=== PATIENT | male | born 1980 | race Caucasian/White ===

== ENCOUNTER 2016-10-23 18:44 | Inpatient (IN) | payer MEDICARE, MEDICAID ==
[~2016-10-23] VITALS: Ht 172.7 cm; Wt 68.1 kg
[~2016-10-23 18:44] MED LIST: ARIP10TA14 PO
[2016-10-23 19:26] LABS: BASOPHILS # (AUTO) 0.05 K/uL (0.00-0.20); BASOPHILS % (AUTO) 0.5 % (0.0-2.0); EOSINOPHILS # (AUTO) 0.21 K/uL (0.00-0.70); EOSINOPHILS % (AUTO) 1.96 % (1.0-6.0); HEMATOCRIT 44.3 % (41-53); HEMOGLOBIN 14.7 g/dL (13.5-17.5); LYMPHOCYTES # (AUTO) 4.4 K/uL (1.0-4.8); LYMPHOCYTES % (AUTO) 41.7 % (22.0-44.0); MEAN CORPUSCULAR HEMOGLOBIN 31.9 pg (26.0-34.0); MEAN CORPUSCULAR HGB CONC 33.2 G/dL (31.0-37.0); MEAN CORPUSCULAR VOLUME 96 fL (80-100); MONOCYTES # (AUTO) 0.6 K/uL (0.1-1.0); MONOCYTES % (AUTO) 5.6 % (2.0-9.0); NEUTROPHILS # (AUTO) 5.3 K/uL (1.8-7.7); NEUTROPHILS % (AUTO) 50.3 % (40.0-70.0); PLATELET COUNT (AUTO) 285 K/uL (150-450); RED BLOOD CELL COUNT(AUTO) 4.62 MIL/uL (4.50-5.90); RED CELL DISTRIBUTION WIDTH 12.6 % (11.5-14.5); WHITE BLOOD COUNT (AUTO) 10.5 K/uL (4.5-11.0)
[2016-10-23 19:30] LABS: ANION GAP 9 mmol/L (8-16); CALCIUM, TOTAL 8.9 mg/dL (8.8-10.5); CARBON DIOXIDE 32 mmol/L (22-29); CHLORIDE 100 mmol/L (98-107); GLOMERULAR FILTR. RATE CALC > 60 mL/min (>60); POTASSIUM 3.4 mmol/L (3.5-5.1); SODIUM SERUM 141 mmol/L (136-145); UREA NITROGEN, BLOOD 17 mg/dL (7-18)
[2016-10-23] MEDS ORDERED: DiphenhydrAMINE HCL 50 MG/ML VIAL IM ONE (19:30)
[2016-10-23] MEDS ORDERED: LORazepam 2 MG/ML VIAL IM ONE (19:30)
[2016-10-23] MEDS ORDERED: HALOPERIDOL LACTATE 5 MG/ML VIAL IM ONE (19:30)
[2016-10-23 19:36] LABS: ALANINE AMINOTRANSFERASE 21 U/L (12-78); ASPARTATE AMINOTRANSFERASE 22 U/L (15-37); BILIRUBIN,TOTAL 0.4 mg/dL (0.1-1.0); TOTAL PROTEIN, SERUM 7.1 g/dL (6.4-8.2)
[2016-10-23] MEDS ORDERED: POTASSIUM CHLORIDE 20 MEQ ER TABLET PO ONE (20:15)
[2016-10-23] MEDS ORDERED: ZOLPIDEM TARTRATE 10 MG TABLET PO PRN (21:15)
[2016-10-23 21:55] LABS: APPEARANCE,URINE CLEAR (CLEAR); GLUCOSE, URINE (UA) NEGATIVE (NEGATIVE); KETONES,URINE NEGATIVE (NEGATIVE); LEUKOCYTE ESTERASE ,URINE NEGATIVE (NEGATIVE); OCCULT BLOOD,URINE NEGATIVE (NEGATIVE); PH,URINE 5.5 (5.0-8.0); PROTEIN,URINE NEGATIVE (NEGATIVE)
[2016-10-23 21:59] LABS: ADD UA MICROSCOPIC NO
[2016-10-23 22:08] VITALS: BP 119/58
[2016-10-24 04:16] VITALS: BP 93/50
[2016-10-24] MEDS: ARIPiprazole 10 MG TABLET PO SCH (08:22)
[2016-10-24 09:00] VITALS: BP 81/65
[2016-10-24] MEDS: LORazepam 2 MG TABLET PO PRN (10:15)
[2016-10-24 18:48] VITALS: BP 100/58
[2016-10-25 08:30] VITALS: BP 117/68
[2016-10-25] MEDS: ARIPiprazole 10 MG TABLET PO SCH (10:00)
[2016-10-25] MEDS: LORazepam 2 MG TABLET PO PRN ×2 (10:02→15:58)
[2016-10-25] MEDS: HALOPERIDOL 5 MG TABLET PO PRN ×2 (10:02→15:58)
[2016-10-25 21:22] VITALS: BP 114/70
[2016-10-26 06:57] VITALS: BP 104/72
[2016-10-26 07:00] LABS: ANION GAP 5 mmol/L (8-16); CALCIUM, TOTAL 8.9 mg/dL (8.8-10.5); CARBON DIOXIDE 30 mmol/L (22-29); CHLORIDE 103 mmol/L (98-107); CREATINE KINASE MB 0.8 ng/mL (0-5); CREATINE KINASE, TOTAL 280 U/L (39-308); CREATININE 1.12 mg/dL (0.60-1.30); GLOMERULAR FILTR. RATE CALC > 60 mL/min (>60); POTASSIUM 4.7 mmol/L (3.5-5.1); SODIUM SERUM 138 mmol/L (136-145); THYROID STIMULATING HORMONE 1.69 uIU/mL (0.36-3.74); UREA NITROGEN, BLOOD 18 mg/dL (7-18)
[2016-10-26 07:08] LABS: HEMOGLOBIN A1C 5.5 % (4.5-6.2)
[2016-10-26] MEDS: LORazepam 2 MG TABLET PO PRN (07:32)
[2016-10-26] MEDS: HALOPERIDOL 5 MG TABLET PO PRN (07:32)
[2016-10-26 08:30] VITALS: BP 117/72
[2016-10-26] MEDS: ARIPiprazole 10 MG TABLET PO SCH (09:26)
== END 2016-10-26 15:14 | disposition home or self-care (01) | DRG 885 ==
LOC: EMS 18:47 → UNDOADMIN 21:52 → 3EC 21:52 → 3EX 10-24 03:31
PROVIDERS: ADMIT Psychiatry & Neurology Child & Adolescent Psychiatry; ATTEND Psychiatry & Neurology Child & Adolescent Psychiatry
DX: F25.0 Schizoaffective disorder, bipolar type (principal); G92 Toxic encephalopathy; M62.82 Rhabdomyolysis; R45.850 Homicidal ideations; E87.6 Hypokalemia; E83.42 Hypomagnesemia; F15.10 Other stimulant abuse, uncomplicated; F11.10 Opioid abuse, uncomplicated; F17.210 Nicotine dependence, cigarettes, uncomplicated; Z72.89 Other problems related to lifestyle; Z71.6 Tobacco abuse counseling; Z71.51 Drug abuse counseling and surveillance of drug abuser; T50.995A Adverse effect of other drugs, medicaments and biological substances, initial encounter; Y92.238 Other place in hospital as the place of occurrence of the external cause; Y93.89 Activity, other specified; Y99.8 Other external cause status; Y90.6 Blood alcohol level of 120-199 mg/100 ml
CPT/HCPCS: 82306; 82607; 82746; 83036; 84439; 84443; 86592; 96372; 99285; 99406; G0480; J1200; J1630; J2060

== ENCOUNTER 2016-11-16 18:22 | Inpatient (IN) | payer MEDICARE, MEDICAID ==
[~2016-11-16] VITALS: Ht 172.7 cm; Wt 69.7 kg
[2016-11-16] MEDS ORDERED: ZOLPIDEM TARTRATE 10 MG TABLET PO PRN (20:45)
[2016-11-16] MEDS ORDERED: LORazepam 2 MG TABLET PO PRN (20:45)
[2016-11-16 21:11] VITALS: BP 132/72
[2016-11-16] MEDS ORDERED: INFLUENZA VIRUS VACCINE QVS 2016-17 (3YR+)/PF 60 MCG/0.5 ML SYRINGE IM ONE (22:00)
[2016-11-16 22:04] VITALS: BP 106/53
[2016-11-16] MEDS ORDERED: IBUPROFEN 600 MG TABLET PO PRN (23:30)
[2016-11-17 00:16] VITALS: BP 121/70
[2016-11-17] MEDS ORDERED: LORazepam 2 MG/ML VIAL ONE (07:26)
[2016-11-17] MEDS ORDERED: HALOPERIDOL LACTATE 5 MG/ML VIAL ONE (07:27)
[2016-11-17] MEDS ORDERED: DiphenhydrAMINE HCL 50 MG/ML VIAL ONE (07:27)
[2016-11-17] MEDS ORDERED: LORazepam 2 MG/ML VIAL IM ONE (07:30)
[2016-11-17] MEDS ORDERED: DiphenhydrAMINE HCL 50 MG/ML VIAL IM ONE (07:30)
[2016-11-17] MEDS ORDERED: HALOPERIDOL LACTATE 5 MG/ML VIAL IM ONE (07:30)
[2016-11-18 08:16] LABS: BASOPHILS # (AUTO) 0.05 K/uL (0.00-0.20); BASOPHILS % (AUTO) 0.6 % (0.0-2.0); EOSINOPHILS # (AUTO) 0.34 K/uL (0.00-0.70); EOSINOPHILS % (AUTO) 4.26 % (1.0-6.0); HEMATOCRIT 43.8 % (41-53); HEMOGLOBIN 14.7 g/dL (13.5-17.5); LYMPHOCYTES % (AUTO) 37.6 % (22.0-44.0); MEAN CORPUSCULAR HEMOGLOBIN 32.6 pg (26.0-34.0); MEAN CORPUSCULAR HGB CONC 33.5 G/dL (31.0-37.0); MEAN CORPUSCULAR VOLUME 97 fL (80-100); MONOCYTES # (AUTO) 0.5 K/uL (0.1-1.0); MONOCYTES % (AUTO) 6.3 % (2.0-9.0); NEUTROPHILS # (AUTO) 4.1 K/uL (1.8-7.7); NEUTROPHILS % (AUTO) 51.2 % (40.0-70.0); PLATELET COUNT (AUTO) 371 K/uL (150-450); RED BLOOD CELL COUNT(AUTO) 4.51 MIL/uL (4.50-5.90); RED CELL DISTRIBUTION WIDTH 13.5 % (11.5-14.5); WHITE BLOOD COUNT (AUTO) 7.9 K/uL (4.5-11.0)
[2016-11-18 08:51] LABS: ALANINE AMINOTRANSFERASE 31 U/L (12-78); ALBUMIN 3.5 g/dL (3.4-5.0); ANION GAP 6 mmol/L (8-16); ASPARTATE AMINOTRANSFERASE 34 U/L (15-37); BILIRUBIN,TOTAL 0.4 mg/dL (0.1-1.0); CALCIUM, TOTAL 9.1 mg/dL (8.8-10.5); CARBON DIOXIDE 33 mmol/L (22-29); CHLORIDE 101 mmol/L (98-107); CREATINE KINASE MB 2.8 ng/mL (0-5); CREATININE 1.01 mg/dL (0.60-1.30); GLOMERULAR FILTR. RATE CALC > 60 mL/min (>60); POTASSIUM 4.4 mmol/L (3.5-5.1); SODIUM SERUM 140 mmol/L (136-145); TOTAL PROTEIN, SERUM 6.6 g/dL (6.4-8.2); UREA NITROGEN, BLOOD 17 mg/dL (7-18)
[2016-11-18 08:52] LABS: CREATINE KINASE, TOTAL 1063 U/L (39-308)
== END 2016-11-17 07:30 | disposition short-term general hospital (02) | DRG 885 ==
LOC: B2X 20:38 → EDSTATUS 20:40
PROVIDERS: ADMIT Psychiatry & Neurology Child & Adolescent Psychiatry; ATTEND Psychiatry & Neurology Child & Adolescent Psychiatry
PROC: 3E0234Z Introduction of Serum, Toxoid and Vaccine into Muscle, Percutaneous Approach (ICD-10-PCS; principal; 2016-11-16)
DX: F25.0 Schizoaffective disorder, bipolar type (principal); E83.42 Hypomagnesemia; F17.200 Nicotine dependence, unspecified, uncomplicated; F15.90 Other stimulant use, unspecified, uncomplicated; D72.828 Other elevated white blood cell count; F19.10 Other psychoactive substance abuse, uncomplicated; K59.03 Drug induced constipation; T43.95XA Adverse effect of unspecified psychotropic drug, initial encounter; Y92.89 Other specified places as the place of occurrence of the external cause; Z72.89 Other problems related to lifestyle; Y93.89 Activity, other specified; Y99.8 Other external cause status; Z83.3 Family history of diabetes mellitus; Z23 Encounter for immunization
CPT/HCPCS: 83735; 87081; 90471; J1200; J1630; J2060

== ENCOUNTER 2016-11-17 08:39 | Inpatient (IN) | payer MEDICARE, MEDICAID ==
[~2016-11-17] VITALS: Ht 172.7 cm; Wt 68.2 kg
[2016-11-17] MEDS ORDERED: INFLUENZA VIRUS VACCINE QVS 2016-17 (3YR+)/PF 60 MCG/0.5 ML SYRINGE IM ONE (10:45)
[2016-11-18 05:58] VITALS: BP 124/66
[2016-11-18] MEDS: LORazepam 2 MG TABLET PO PRN ×3 (06:13→19:29)
[2016-11-18] MEDS: HALOPERIDOL 5 MG TABLET PO PRN ×2 (08:54→19:29)
[2016-11-18] MEDS: ARIPiprazole 10 MG TABLET PO SCH (08:54)
[2016-11-18 10:30] VITALS: BP 100/63
[2016-11-18] MEDS ORDERED: ACETAMINOPHEN 325 MG TABLET PO PRN (10:30)
[2016-11-18] MEDS: NICOTINE 21 MG/24 HOUR PATCH TD SCH (11:16)
[2016-11-18] MEDS: IBUPROFEN 600 MG TABLET PO PRN (11:22)
[2016-11-18 11:24] VITALS: BP 105/79
[2016-11-18 12:24] VITALS: BP 108/67
[2016-11-18 16:00] VITALS: BP 116/69
[2016-11-18] MEDS: ZOLPIDEM TARTRATE 10 MG TABLET PO PRN (21:06)
[2016-11-19] MEDS: IBUPROFEN 600 MG TABLET PO PRN (06:29)
[2016-11-19 06:34] VITALS: BP 117/72
[2016-11-19 08:11] VITALS: BP 115/72
[2016-11-19] MEDS: NICOTINE 21 MG/24 HOUR PATCH TD SCH (09:16)
[2016-11-19] MEDS: ARIPiprazole 10 MG TABLET PO SCH (09:16)
[2016-11-19] MEDS: LORazepam 2 MG TABLET PO PRN ×2 (09:20→16:02)
[2016-11-19 16:00] VITALS: BP 126/65
[2016-11-19] MEDS: HALOPERIDOL 5 MG TABLET PO PRN (16:02)
[2016-11-20] MEDS: ZOLPIDEM TARTRATE 10 MG TABLET PO PRN ×2 (00:08→20:26)
[2016-11-20 00:10] VITALS: BP 126/72
[2016-11-20] MEDS: LORazepam 2 MG TABLET PO PRN ×3 (00:19→16:31)
[2016-11-20] MEDS: HALOPERIDOL 5 MG TABLET PO PRN ×2 (08:14→16:31)
[2016-11-20] MEDS: ARIPiprazole 10 MG TABLET PO SCH (08:14)
[2016-11-20] MEDS: MAGNESIUM OXIDE 400 MG TABLET PO SCH (08:14)
[2016-11-20] MEDS: NICOTINE 21 MG/24 HOUR PATCH TD SCH (08:17)
[2016-11-20 08:24] VITALS: BP 108/67
[2016-11-20 16:00] VITALS: BP 110/66
[2016-11-21 06:06] VITALS: BP 118/72
[2016-11-21 08:33] VITALS: BP 106/62
[2016-11-21] MEDS: NICOTINE 21 MG/24 HOUR PATCH TD SCH (08:56)
[2016-11-21] MEDS: ARIPiprazole 10 MG TABLET PO SCH (08:56)
[2016-11-21] MEDS: HALOPERIDOL 5 MG TABLET PO PRN ×3 (08:56→19:43)
[2016-11-21] MEDS: LORazepam 2 MG TABLET PO PRN ×3 (08:56→19:43)
[2016-11-21] MEDS: MAGNESIUM OXIDE 400 MG TABLET PO SCH (08:57)
[2016-11-21 16:15] VITALS: BP 122/71
[2016-11-22 05:50] VITALS: BP 116/76
[2016-11-22] MEDS: LORazepam 2 MG TABLET PO PRN ×2 (08:17→13:38)
[2016-11-22] MEDS: MAGNESIUM OXIDE 400 MG TABLET PO SCH (08:18)
[2016-11-22] MEDS: HALOPERIDOL 5 MG TABLET PO PRN ×2 (08:18→13:38)
[2016-11-22] MEDS: ARIPiprazole 10 MG TABLET PO SCH (08:18)
[2016-11-22] MEDS: NICOTINE 21 MG/24 HOUR PATCH TD SCH (08:19)
[2016-11-22 09:42] VITALS: BP 128/79
[2016-11-22 09:42] LABS: CREATINE KINASE, TOTAL 77 U/L (39-308)
[2016-11-22] MEDS ORDERED: MAGOX PO (14:51)
== END 2016-11-22 16:25 | disposition home or self-care (01) | DRG 885 ==
LOC: B3A 09:22
PROVIDERS: ADMIT Psychiatry & Neurology Child & Adolescent Psychiatry; ATTEND Psychiatry & Neurology Child & Adolescent Psychiatry
DX: F25.0 Schizoaffective disorder, bipolar type (principal); F15.90 Other stimulant use, unspecified, uncomplicated; K59.00 Constipation, unspecified; F12.90 Cannabis use, unspecified, uncomplicated; E83.42 Hypomagnesemia; E87.6 Hypokalemia; M79.671 Pain in right foot; F19.10 Other psychoactive substance abuse, uncomplicated; Z28.21 Immunization not carried out because of patient refusal

== ENCOUNTER 2017-01-24 17:08 | Inpatient (IN) | payer MEDICARE, MEDICAID ==
[~2017-01-24] VITALS: Ht 172.7 cm; Wt 69.4 kg
[~2017-01-24 17:08] MED LIST changes: +MAGOX PO
[2017-01-24 18:21] LABS: BASOPHILS % (AUTO) 0.4 % (0.0-2.0); EOSINOPHILS % (AUTO) 2.7 % (1.0-6.0); HEMATOCRIT 43.7 % (41-53); HEMOGLOBIN 14.2 g/dL (13.5-17.5); LYMPHOCYTES # (AUTO) 2.7 K/uL (1.0-4.8); LYMPHOCYTES % (AUTO) 29.9 % (22.0-44.0); MEAN CORPUSCULAR HEMOGLOBIN 32.1 pg (26.0-34.0); MEAN CORPUSCULAR HGB CONC 32.6 G/dL (31.0-37.0); MEAN CORPUSCULAR VOLUME 98 fL (80-100); MONOCYTES # (AUTO) 0.6 K/uL (0.1-1.0); MONOCYTES % (AUTO) 6.9 % (2.0-9.0); NEUTROPHILS # (AUTO) 5.4 K/uL (1.8-7.7); NEUTROPHILS % (AUTO) 60.1 % (40.0-70.0); PLATELET COUNT (AUTO) 364 K/uL (150-450); RED BLOOD CELL COUNT(AUTO) 4.45 MIL/uL (4.50-5.90); RED CELL DISTRIBUTION WIDTH 13.6 % (11.5-14.5)
[2017-01-24 18:35] LABS: ANION GAP 7 mmol/L (8-16); CALCIUM, TOTAL 9.5 mg/dL (8.8-10.5); CARBON DIOXIDE 31 mmol/L (22-29); CHLORIDE 100 mmol/L (98-107); CREATININE 1.07 mg/dL (0.60-1.30); GLOMERULAR FILTR. RATE CALC > 60 mL/min (>60); POTASSIUM 4.5 mmol/L (3.5-5.1); SODIUM SERUM 138 mmol/L (136-145); UREA NITROGEN, BLOOD 16 mg/dL (7-18)
[2017-01-24 18:44] LABS: ALANINE AMINOTRANSFERASE 29 U/L (12-78); ALBUMIN 4.4 g/dL (3.4-5.0); ASPARTATE AMINOTRANSFERASE 20 U/L (15-37); BILIRUBIN,TOTAL 0.3 mg/dL (0.1-1.0); TOTAL PROTEIN, SERUM 7.9 g/dL (6.4-8.2)
[2017-01-24] MEDS ORDERED: DiphenhydrAMINE HCL 50 MG/ML VIAL IM ONE (19:15)
[2017-01-24] MEDS ORDERED: HALOPERIDOL LACTATE 5 MG/ML VIAL IM ONE (19:15)
[2017-01-24] MEDS ORDERED: LORazepam 2 MG/ML VIAL IM ONE (19:15)
[2017-01-24] MEDS ORDERED: OLANZapine 5 MG RAPDIS TABLET PO PRN (20:00)
[2017-01-24 21:25] VITALS: BP 105/72
[2017-01-25 08:07] LABS: CHOL/HDL RATIO 3.4 (4.2-7.3); CREATINE KINASE MB 4.9 ng/mL (0-5); CREATINE KINASE, TOTAL 814 U/L (39-308)
[2017-01-25 08:56] VITALS: BP 101/56
[2017-01-25] MEDS ORDERED: ARIPiprazole 10 MG TABLET PO SCH (09:00)
[2017-01-25] MEDS ORDERED: MAG HYDROX/AL HYDROX/SIMETH ES 30 ML SUSPENSION UDCUP PO PRN (12:00)
[2017-01-25] MEDS ORDERED: LOPERAMIDE HCL 2 MG CAPSULE PO PRN (12:00)
[2017-01-25] MEDS ORDERED: MAGNESIUM HYDROXIDE SUSPENSION 30 ML UDCUP PO PRN (12:00)
[2017-01-25] MEDS ORDERED: GuaiFENesin/D-METHORPHAN [SUGAR-FREE] 200-20MG/10 ML SYRUP UDCUP PO PRN (12:00)
[2017-01-25] MEDS ORDERED: TUBERCULIN, PURIFIED PROTEIN DERIVATIVE 5 TU/0.1 ML SYG ID ONE (12:00)
[2017-01-25] MEDS ORDERED: PROMETHAZINE HCL 25 MG TABLET PO PRN (12:00)
[2017-01-25 16:00] VITALS: BP 107/69
[2017-01-25] MEDS: LORazepam 2 MG TABLET PO PRN (16:44)
[2017-01-25] MEDS: THIAMINE HCL 100 MG TABLET PO SCH (16:44)
[2017-01-25] MEDS ORDERED: HALOPERIDOL DECANOATE 50 MG/ML VIAL IM ONE (17:15)
[2017-01-25] MEDS: HALOPERIDOL 10 MG TABLET PO SCH (21:41)
[2017-01-26] MEDS: LORazepam 2 MG TABLET PO PRN (06:46)
[2017-01-26] MEDS: HALOPERIDOL 5 MG TABLET PO PRN (07:56)
[2017-01-26] MEDS: THIAMINE HCL 100 MG TABLET PO SCH ×2 (07:56→16:34)
[2017-01-26] MEDS: NALTREXONE HCL 50 MG TABLET PO SCH (07:56)
[2017-01-26] MEDS: FOLIC ACID 1 MG TABLET PO SCH (07:56)
[2017-01-26] MEDS: HydrOXYzine PAMOATE 50 MG CAPSULE PO PRN (07:56)
[2017-01-26] MEDS: MULTIVITAMINS WITH MINERALS, THERAPEUTIC TABLET PO SCH (07:56)
[2017-01-26 08:28] VITALS: BP 112/70
[2017-01-26] MEDS: HALOPERIDOL 10 MG TABLET PO SCH (21:27)
[2017-01-27] MEDS: HALOPERIDOL 5 MG TABLET PO PRN ×2 (03:18→07:42)
[2017-01-27] MEDS: LORazepam 2 MG TABLET PO PRN ×3 (03:18→16:16)
[2017-01-27] MEDS: MULTIVITAMINS WITH MINERALS, THERAPEUTIC TABLET PO SCH (07:42)
[2017-01-27] MEDS: FOLIC ACID 1 MG TABLET PO SCH (07:42)
[2017-01-27] MEDS: NALTREXONE HCL 50 MG TABLET PO SCH (07:42)
[2017-01-27] MEDS: THIAMINE HCL 100 MG TABLET PO SCH ×2 (07:42→16:16)
[2017-01-27] MEDS: HydrOXYzine PAMOATE 50 MG CAPSULE PO PRN (07:42)
[2017-01-27 08:23] VITALS: BP 118/69
[2017-01-27 18:04] VITALS: BP 122/71
[2017-01-27] MEDS: HALOPERIDOL 10 MG TABLET PO SCH (20:15)
[2017-01-28] MEDS: LORazepam 2 MG TABLET PO PRN ×3 (01:51→17:00)
[2017-01-28] MEDS: ZOLPIDEM TARTRATE 10 MG TABLET PO PRN (01:51)
[2017-01-28] MEDS: NICOTINE 21 MG/24 HOUR PATCH TD SCH (06:04)
[2017-01-28 08:00] VITALS: BP 111/64
[2017-01-28] MEDS: THIAMINE HCL 100 MG TABLET PO SCH ×2 (08:06→17:01)
[2017-01-28] MEDS: HydrOXYzine PAMOATE 50 MG CAPSULE PO PRN (08:06)
[2017-01-28] MEDS: HALOPERIDOL 5 MG TABLET PO PRN (08:06)
[2017-01-28] MEDS: NALTREXONE HCL 50 MG TABLET PO SCH (08:06)
[2017-01-28] MEDS: FOLIC ACID 1 MG TABLET PO SCH (08:06)
[2017-01-28] MEDS: MULTIVITAMINS WITH MINERALS, THERAPEUTIC TABLET PO SCH (08:06)
[2017-01-28 08:12] LABS: CREATINE KINASE MB 0.8 ng/mL (0-5); CREATINE KINASE, TOTAL 165 U/L (39-308)
[2017-01-28] MEDS: HALOPERIDOL 10 MG TABLET PO SCH (20:20)
[2017-01-29] MEDS: NICOTINE 21 MG/24 HOUR PATCH TD SCH (06:10)
[2017-01-29] MEDS: HydrOXYzine PAMOATE 50 MG CAPSULE PO PRN (07:37)
[2017-01-29] MEDS: LORazepam 2 MG TABLET PO PRN ×2 (07:38→17:50)
[2017-01-29] MEDS: THIAMINE HCL 100 MG TABLET PO SCH ×2 (08:09→16:31)
[2017-01-29] MEDS: NALTREXONE HCL 50 MG TABLET PO SCH (08:09)
[2017-01-29] MEDS: MULTIVITAMINS WITH MINERALS, THERAPEUTIC TABLET PO SCH (08:09)
[2017-01-29] MEDS: FOLIC ACID 1 MG TABLET PO SCH (08:09)
[2017-01-29 09:23] VITALS: BP 137/72
[2017-01-29] MEDS: HALOPERIDOL 5 MG TABLET PO PRN (17:50)
[2017-01-29] MEDS: ACETAMINOPHEN 325 MG TABLET PO PRN (18:33)
[2017-01-29 18:36] VITALS: BP 126/85
[2017-01-29] MEDS: HALOPERIDOL 10 MG TABLET PO SCH (20:28)
[2017-01-30] MEDS: ZOLPIDEM TARTRATE 10 MG TABLET PO PRN (00:09)
[2017-01-30] MEDS: LORazepam 2 MG TABLET PO PRN ×3 (00:09→14:16)
[2017-01-30] MEDS: HALOPERIDOL 5 MG TABLET PO PRN ×3 (01:12→14:16)
[2017-01-30] MEDS: NICOTINE 21 MG/24 HOUR PATCH TD SCH (06:40)
[2017-01-30] MEDS: FOLIC ACID 1 MG TABLET PO SCH (07:42)
[2017-01-30] MEDS: MULTIVITAMINS WITH MINERALS, THERAPEUTIC TABLET PO SCH (07:42)
[2017-01-30] MEDS: THIAMINE HCL 100 MG TABLET PO SCH ×2 (07:42→16:28)
[2017-01-30] MEDS: HydrOXYzine PAMOATE 50 MG CAPSULE PO PRN (07:42)
[2017-01-30] MEDS: NALTREXONE HCL 50 MG TABLET PO SCH (07:44)
[2017-01-30] MEDS: ACETAMINOPHEN 325 MG TABLET PO PRN (08:39)
[2017-01-30 08:40] VITALS: BP 124/66
[2017-01-30 16:30] VITALS: BP 128/71
[2017-01-30] MEDS: DIVALPROEX SODIUM 500 MG ER TABLET PO SCH (20:42)
[2017-01-30] MEDS: HALOPERIDOL 10 MG TABLET PO SCH (20:43)
[2017-01-31] MEDS: NICOTINE 21 MG/24 HOUR PATCH TD SCH (06:01)
[2017-01-31] MEDS: MULTIVITAMINS WITH MINERALS, THERAPEUTIC TABLET PO SCH (08:04)
[2017-01-31] MEDS: THIAMINE HCL 100 MG TABLET PO SCH ×2 (08:04→16:19)
[2017-01-31] MEDS: FOLIC ACID 1 MG TABLET PO SCH (08:04)
[2017-01-31] MEDS: NALTREXONE HCL 50 MG TABLET PO SCH (08:05)
[2017-01-31 08:30] VITALS: BP 105/58
[2017-01-31 17:02] VITALS: BP 100/66
[2017-01-31] MEDS: DIVALPROEX SODIUM 500 MG ER TABLET PO SCH (20:18)
[2017-01-31] MEDS: ZOLPIDEM TARTRATE 10 MG TABLET PO PRN (20:18)
[2017-01-31] MEDS: HALOPERIDOL 10 MG TABLET PO SCH (20:18)
[2017-02-01] MEDS: HALOPERIDOL 5 MG TABLET PO PRN ×2 (03:04→07:28)
[2017-02-01] MEDS: NICOTINE 21 MG/24 HOUR PATCH TD SCH (06:00)
[2017-02-01] MEDS: NALTREXONE HCL 50 MG TABLET PO SCH (07:28)
[2017-02-01] MEDS: LORazepam 2 MG TABLET PO PRN (07:28)
[2017-02-01] MEDS: FOLIC ACID 1 MG TABLET PO SCH (07:28)
[2017-02-01] MEDS: THIAMINE HCL 100 MG TABLET PO SCH ×2 (07:28→17:18)
[2017-02-01] MEDS: MULTIVITAMINS WITH MINERALS, THERAPEUTIC TABLET PO SCH (07:28)
[2017-02-01 08:30] VITALS: BP 102/62
[2017-02-01 16:31] VITALS: BP 103/69
[2017-02-01] MEDS ORDERED: NALT50 PO (17:15)
[2017-02-01] MEDS ORDERED: HALOD50I IM (17:15)
[2017-02-08] MEDS ORDERED: HALOPERIDOL DECANOATE 50 MG/ML VIAL IM SCH (09:00)
== END 2017-02-01 19:00 | disposition home or self-care (01) | DRG 885 ==
LOC: EMS 17:10 → 3EC 20:35
PROVIDERS: ADMIT Psychiatry & Neurology Psychiatry; ATTEND Psychiatry & Neurology Psychiatry
DX: F25.0 Schizoaffective disorder, bipolar type (principal); M62.82 Rhabdomyolysis; E83.42 Hypomagnesemia; F15.10 Other stimulant abuse, uncomplicated; Y04.0XXA Assault by unarmed brawl or fight, initial encounter; F17.210 Nicotine dependence, cigarettes, uncomplicated; F10.10 Alcohol abuse, uncomplicated; F12.10 Cannabis abuse, uncomplicated; Z91.19 Patient's noncompliance with other medical treatment and regimen; Z79.899 Other long term (current) drug therapy; Y92.89 Other specified places as the place of occurrence of the external cause
CPT/HCPCS: 82306; 82607; 82746; 83735; 86592; 93005; 96372; 99285; G0480; J1200; J1630; J1631; J2060

== ENCOUNTER 2017-09-17 14:54 | Inpatient (IN) | payer MEDICARE, MEDICAID ==
[~2017-09-17] VITALS: Ht 172.7 cm; Wt 63.0 kg
[~2017-09-17 14:54] MED LIST changes: -ARIP10TA14 PO; +HALO10 PO; +HALO50VI4 IM; +HALOD50I IM; -MAGOX PO; +NALT50TA6 PO
[2017-09-17 15:17] LABS: GLUCOSE,POINT OF CARE 100 MG/DL (70-110)
[2017-09-17 15:30] LABS: BASOPHILS % (AUTO) 0.4 % (0.0-2.0); EOSINOPHILS % (AUTO) 2.4 % (1.0-6.0); HEMATOCRIT 37.3 % (41-53); HEMOGLOBIN 12.8 g/dL (13.5-17.5); LYMPHOCYTES # (AUTO) 3.6 K/uL (1.0-4.8); LYMPHOCYTES % (AUTO) 31.3 % (22.0-44.0); MEAN CORPUSCULAR HEMOGLOBIN 33.5 pg (26.0-34.0); MEAN CORPUSCULAR HGB CONC 34.3 G/dL (31.0-37.0); MEAN CORPUSCULAR VOLUME 98 fL (80-100); MONOCYTES # (AUTO) 0.7 K/uL (0.1-1.0); MONOCYTES % (AUTO) 5.7 % (2.0-9.0); NEUTROPHILS % (AUTO) 60.2 % (40.0-70.0); PLATELET COUNT (AUTO) 463 K/uL (150-450); RED BLOOD CELL COUNT(AUTO) 3.82 MIL/uL (4.50-5.90); RED CELL DISTRIBUTION WIDTH 14.3 % (11.5-14.5)
[2017-09-17 15:38] LABS: ANION GAP 4 mmol/L (8-16); CALCIUM, TOTAL 9.6 mg/dL (8.8-10.5); CARBON DIOXIDE 34 mmol/L (22-29); CHLORIDE 103 mmol/L (98-107); CREATININE 1.08 mg/dL (0.60-1.30); GLOMERULAR FILTR. RATE CALC > 60 mL/min (>60); GLUCOSE,RANDOM 107 mg/dL (70-110); POTASSIUM 4.1 mmol/L (3.5-5.1); SODIUM SERUM 141 mmol/L (136-145); UREA NITROGEN, BLOOD 19 mg/dL (7-18)
[2017-09-17 15:45] LABS: ALANINE AMINOTRANSFERASE 46 U/L (12-78); ALBUMIN 3.3 g/dL (3.4-5.0); ALKALINE PHOSPHATASE 71 U/L (46-116); ASPARTATE AMINOTRANSFERASE 47 U/L (15-37); BILIRUBIN,TOTAL 0.3 mg/dL (0.1-1.0); TOTAL PROTEIN, SERUM 7.6 g/dL (6.4-8.2)
[2017-09-17 16:13] LABS: SALICYLATE 0.9 mg/dL (2.8-20.0)
[2017-09-17 16:36] LABS: AMPHET/METH SCREEN,URINE POSITIVE (NEGATIVE); BARBITURATE SCREEN, URINE NEGATIVE (NEGATIVE); BENZODIAZEPINES SCREEN,URINE NEGATIVE (NEGATIVE); CANNABINOID SCREEN,URINE POSITIVE (NEGATIVE); COCAINE SCREEN,URINE NEGATIVE (NEGATIVE); METHADONE SCREEN, URINE NEGATIVE (NEGATIVE); OPIATE SCREEN,URINE NEGATIVE (NEGATIVE)
[2017-09-17 16:37] LABS: PHENCYCLIDINE SCREEN,URINE NEGATIVE (NEGATIVE)
[2017-09-17 17:11] LABS: CKMB RELATIVE INDEX 2.8 % (0.0-4.0); CREATINE KINASE MB 15.9 ng/mL (0-5); CREATINE KINASE, TOTAL 566 U/L (39-308)
[2017-09-17] MEDS ORDERED: HALOPERIDOL LACTATE 5 MG/ML VIAL IM ONE (17:15)
[2017-09-17] MEDS ORDERED: LORazepam 2 MG/ML VIAL IM ONE (17:15)
[2017-09-17] MEDS ORDERED: DiphenhydrAMINE HCL 50 MG/ML VIAL IM ONE (17:15)
[2017-09-17 17:22] LABS: ACETAMINOPHEN 0 mcg/mL (10-30)
[2017-09-17] MEDS ORDERED: ZOLPIDEM TARTRATE 10 MG TABLET PO PRN (17:30)
[2017-09-17] MEDS: HALOPERIDOL 5 MG TABLET PO SCH (20:14)
[2017-09-18] MEDS: HALOPERIDOL 5 MG TABLET PO SCH (20:18)
[2017-09-18 21:24] VITALS: BP 124/89
[2017-09-19 08:04] VITALS: BP 112/84
[2017-09-19] MEDS ORDERED: ACETAMINOPHEN 325 MG TABLET PO PRN (16:15)
[2017-09-19] MEDS ORDERED: IBUPROFEN 400 MG TABLET PO PRN (16:15)
[2017-09-19 17:14] VITALS: BP 115/59
[2017-09-19] MEDS: HALOPERIDOL 5 MG TABLET PO SCH (21:55)
[2017-09-20 07:52] LABS: % IRON SATURATION 38.5 % (30-44)
[2017-09-20 08:24] VITALS: BP 126/60
[2017-09-20] MEDS: HALOPERIDOL 5 MG TABLET PO PRN (13:08)
[2017-09-20] MEDS: LORazepam 2 MG TABLET PO PRN (13:08)
[2017-09-20] MEDS: HALOPERIDOL 5 MG TABLET PO SCH (20:50)
[2017-09-21 08:03] VITALS: BP 102/81
[2017-09-21] MEDS: HALOPERIDOL 5 MG TABLET PO SCH (20:25)
[2017-09-22 07:54] LABS: BASOPHILS % (AUTO) 0.9 % (0.0-2.0); EOSINOPHILS % (AUTO) 5.5 % (1.0-6.0); HEMATOCRIT 40.7 % (41-53); HEMOGLOBIN 13.8 g/dL (13.5-17.5); LYMPHOCYTES # (AUTO) 3.2 K/uL (1.0-4.8); LYMPHOCYTES % (AUTO) 42.6 % (22.0-44.0); MEAN CORPUSCULAR HEMOGLOBIN 33.4 pg (26.0-34.0); MEAN CORPUSCULAR HGB CONC 33.9 G/dL (31.0-37.0); MEAN CORPUSCULAR VOLUME 99 fL (80-100); MONOCYTES # (AUTO) 0.6 K/uL (0.1-1.0); NEUTROPHILS # (AUTO) 3.2 K/uL (1.8-7.7); PLATELET COUNT (AUTO) 398 K/uL (150-450); RED BLOOD CELL COUNT(AUTO) 4.12 MIL/uL (4.50-5.90); RED CELL DISTRIBUTION WIDTH 13.5 % (11.5-14.5)
[2017-09-22 08:02] VITALS: BP 110/70
[2017-09-22] MEDS: HALOPERIDOL 5 MG TABLET PO PRN (08:29)
[2017-09-22] MEDS: LORazepam 2 MG TABLET PO PRN (08:29)
[2017-09-22 10:17] LABS: CREATINE KINASE, TOTAL 95 U/L (39-308)
[2017-09-22] MEDS ORDERED: HALO10 PO (12:58)
== END 2017-09-22 14:15 | disposition home or self-care (01) | DRG 885 ==
LOC: EMS 14:57 → 3EC 09-18 14:50
PROVIDERS: ADMIT Psychiatry & Neurology Psychiatry; ATTEND Psychiatry & Neurology Psychiatry
DX: F25.0 Schizoaffective disorder, bipolar type (principal); M62.82 Rhabdomyolysis; D64.9 Anemia, unspecified; F10.10 Alcohol abuse, uncomplicated; F15.90 Other stimulant use, unspecified, uncomplicated; F41.9 Anxiety disorder, unspecified; F17.210 Nicotine dependence, cigarettes, uncomplicated; F19.10 Other psychoactive substance abuse, uncomplicated; D72.829 Elevated white blood cell count, unspecified; Z78.1 Physical restraint status
CPT/HCPCS: 82728; 82962; 83540; 83550; 96372; 99285; G0480; G0481; J1200; J1630; J2060

== ENCOUNTER 2017-09-25 15:30 | Inpatient (IN) | payer MEDICARE, MEDICAID ==
[~2017-09-25] VITALS: Ht 172.7 cm; Wt 63.6 kg
[~2017-09-25 15:30] MED LIST changes: -HALO50VI4 IM; -HALOD50I IM; -NALT50TA6 PO
[2017-09-25] MEDS ORDERED: LORazepam 2 MG/ML VIAL IM ONE (16:30)
[2017-09-25] MEDS ORDERED: HALOPERIDOL LACTATE 5 MG/ML VIAL IM ONE (16:30)
[2017-09-25] MEDS ORDERED: DiphenhydrAMINE HCL 50 MG/ML VIAL IM ONE (16:30)
[2017-09-25 16:31] LABS: BASOPHILS # (AUTO) 0.03 K/uL (0.00-0.20); BASOPHILS % (AUTO) 0.3 % (0.0-2.0); EOSINOPHILS # (AUTO) 0.33 K/uL (0.00-0.70); EOSINOPHILS % (AUTO) 2.51 % (1.0-6.0); HEMATOCRIT 37.5 % (41-53); HEMOGLOBIN 12.7 g/dL (13.5-17.5); LYMPHOCYTES # (AUTO) 3.3 K/uL (1.0-4.8); LYMPHOCYTES % (AUTO) 24.6 % (22.0-44.0); MEAN CORPUSCULAR HEMOGLOBIN 33.5 pg (26.0-34.0); MEAN CORPUSCULAR HGB CONC 33.9 G/dL (31.0-37.0); MEAN CORPUSCULAR VOLUME 99 fL (80-100); MONOCYTES # (AUTO) 1.1 K/uL (0.1-1.0); MONOCYTES % (AUTO) 8.3 % (2.0-9.0); NEUTROPHILS # (AUTO) 8.6 K/uL (1.8-7.7); NEUTROPHILS % (AUTO) 64.4 % (40.0-70.0); PLATELET COUNT (AUTO) 384 K/uL (150-450); RED CELL DISTRIBUTION WIDTH 13.5 % (11.5-14.5)
[2017-09-25 16:41] LABS: ANION GAP 10 mmol/L (8-16); CARBON DIOXIDE 26 mmol/L (22-29); CHLORIDE 102 mmol/L (98-107); CREATININE 0.93 mg/dL (0.60-1.30); GLOMERULAR FILTR. RATE CALC > 60 mL/min (>60); GLUCOSE,RANDOM 90 mg/dL (70-110); POTASSIUM 3.9 mmol/L (3.5-5.1); SODIUM SERUM 138 mmol/L (136-145); UREA NITROGEN, BLOOD 22 mg/dL (7-18)
[2017-09-25 16:55] LABS: ALANINE AMINOTRANSFERASE 42 U/L (12-78); ALBUMIN 3.5 g/dL (3.4-5.0); ALKALINE PHOSPHATASE 98 U/L (46-116); ASPARTATE AMINOTRANSFERASE 39 U/L (15-37); BILIRUBIN,TOTAL 0.5 mg/dL (0.1-1.0); TOTAL PROTEIN, SERUM 7.5 g/dL (6.4-8.2)
[2017-09-26] MEDS ORDERED: DiphenhydrAMINE HCL 50 MG/ML VIAL IM ONE (06:15)
[2017-09-26] MEDS ORDERED: LORazepam 2 MG/ML VIAL IM ONE (06:15)
[2017-09-26] MEDS ORDERED: HALOPERIDOL LACTATE 5 MG/ML VIAL IM ONE (06:15)
[2017-09-26] MEDS ORDERED: HALOPERIDOL 5 MG TABLET PO PRN (06:30)
[2017-09-26] MEDS ORDERED: ZOLPIDEM TARTRATE 10 MG TABLET PO PRN (06:30)
[2017-09-26] MEDS: LORazepam 2 MG TABLET PO PRN (17:40)
[2017-09-27 00:04] VITALS: BP 119/69
[2017-09-27] MEDS ORDERED: INFLUENZA VIRUS VACCINE QVS 2017-18 (3YR+)/PF 60 MCG/0.5 ML SYRINGE IM ONE (00:30)
[2017-09-27 08:11] VITALS: BP 115/71
[2017-09-27 08:46] LABS: CHOL/HDL RATIO 3.3 (4.2-7.3)
[2017-09-27] MEDS ORDERED: HALOPERIDOL LACTATE 5 MG/ML VIAL ONE (11:15)
[2017-09-27] MEDS ORDERED: HALOPERIDOL LACTATE 5 MG/ML VIAL IM ONE (11:15)
[2017-09-27] MEDS ORDERED: DiphenhydrAMINE HCL 50 MG/ML VIAL ONE (11:15)
[2017-09-27] MEDS ORDERED: LORazepam 2 MG/ML VIAL IM ONE (11:15)
[2017-09-27] MEDS ORDERED: LORazepam 2 MG/ML VIAL ONE (11:15)
[2017-09-27] MEDS ORDERED: DiphenhydrAMINE HCL 50 MG/ML VIAL IM ONE (11:15)
[2017-09-27] MEDS ORDERED: MAG HYDROX/AL HYDROX/SIMETH ES 30 ML SUSPENSION UDCUP PO PRN (12:00)
[2017-09-27] MEDS ORDERED: HydrOXYzine PAMOATE 50 MG CAPSULE PO PRN (12:00)
[2017-09-27] MEDS ORDERED: GuaiFENesin/D-METHORPHAN [SUGAR-FREE] 200-20MG/10 ML SYRUP UDCUP PO PRN (12:00)
[2017-09-27] MEDS ORDERED: TUBERCULIN, PURIFIED PROTEIN DERIVATIVE 5 TU/0.1 ML SYG ID ONE (12:00)
[2017-09-27] MEDS ORDERED: LOPERAMIDE HCL 2 MG CAPSULE PO PRN (12:00)
[2017-09-27] MEDS ORDERED: ACETAMINOPHEN 325 MG TABLET PO PRN ×2 (12:00→17:30)
[2017-09-27] MEDS ORDERED: MAGNESIUM HYDROXIDE SUSPENSION 30 ML UDCUP PO PRN (12:00)
[2017-09-27] MEDS ORDERED: PROMETHAZINE HCL 25 MG TABLET PO PRN (12:00)
[2017-09-27 12:50] VITALS: BP 112/64
[2017-09-27 13:30] VITALS: BP 128/84
[2017-09-27] MEDS: THIAMINE HCL 100 MG TABLET PO SCH (16:59)
[2017-09-27] MEDS ORDERED: IBUPROFEN 400 MG TABLET PO PRN (17:30)
[2017-09-27] MEDS: LORazepam 2 MG TABLET PO PRN (20:35)
[2017-09-27] MEDS ORDERED: HALOPERIDOL 10 MG TABLET PO SCH (21:00)
[2017-09-28 02:34] VITALS: BP 119/76
[2017-09-28 08:06] VITALS: BP 114/76
[2017-09-28] MEDS: THIAMINE HCL 100 MG TABLET PO SCH ×2 (08:58→16:44)
[2017-09-28] MEDS ORDERED: MULTIVITAMINS WITH MINERALS, THERAPEUTIC TABLET PO SCH (09:00)
[2017-09-28] MEDS ORDERED: FOLIC ACID 1 MG TABLET PO SCH (09:00)
[2017-09-28] MEDS: LORazepam 2 MG TABLET PO PRN (14:15)
[2017-09-28] MEDS ORDERED: HALO10 PO (15:46)
[2017-09-28 16:00] VITALS: BP 114/70
== END 2017-09-28 17:10 | disposition home or self-care (01) | DRG 885 ==
LOC: EMS 15:32 → EEVIPCON 15:32 → B3A 09-26 19:06
PROVIDERS: ADMIT Psychiatry & Neurology Child & Adolescent Psychiatry; ATTEND Psychiatry & Neurology Psychiatry
DX: F20.0 Paranoid schizophrenia (principal); Z59.0 Homelessness; D64.9 Anemia, unspecified; D72.829 Elevated white blood cell count, unspecified; F10.10 Alcohol abuse, uncomplicated; F12.90 Cannabis use, unspecified, uncomplicated; F15.90 Other stimulant use, unspecified, uncomplicated; F17.200 Nicotine dependence, unspecified, uncomplicated; F14.90 Cocaine use, unspecified, uncomplicated; F17.210 Nicotine dependence, cigarettes, uncomplicated; F19.10 Other psychoactive substance abuse, uncomplicated; Z91.14 Patient's other noncompliance with medication regimen; Z79.899 Other long term (current) drug therapy; Z91.19 Patient's noncompliance with other medical treatment and regimen; Z71.6 Tobacco abuse counseling; Z71.51 Drug abuse counseling and surveillance of drug abuser
CPT/HCPCS: 87081; 96372; 99285; G0480; J1200; J1630; J2060

== ENCOUNTER 2017-10-14 13:16 | Inpatient (IN) | payer MEDICARE, MEDICAID ==
[~2017-10-14] VITALS: Ht 172.7 cm; Wt 65.8 kg
[2017-10-14 17:41] VITALS: BP 118/66
[2017-10-14] MEDS ORDERED: ZOLPIDEM TARTRATE 10 MG TABLET PO PRN (17:45)
[2017-10-14] MEDS ORDERED: INFLUENZA VIRUS VACCINE QVS 2017-18 (3YR+)/PF 60 MCG/0.5 ML SYRINGE IM ONE (18:15)
[2017-10-14 18:30] VITALS: BP 122/74
[2017-10-14] MEDS: HALOPERIDOL 10 MG TABLET PO SCH (20:33)
[2017-10-14] MEDS: DiphenhydrAMINE HCL 25 MG CAPSULE PO SCH (20:34)
[2017-10-15 06:58] VITALS: BP 109/67
[2017-10-15 07:46] LABS: BASOPHILS % (AUTO) 0.6 % (0.0-2.0); EOSINOPHILS % (AUTO) 4.9 % (1.0-6.0); HEMATOCRIT 40.6 % (41-53); HEMOGLOBIN 13.8 g/dL (13.5-17.5); LYMPHOCYTES # (AUTO) 2.8 K/uL (1.0-4.8); LYMPHOCYTES % (AUTO) 35.8 % (22.0-44.0); MEAN CORPUSCULAR HGB CONC 33.9 G/dL (31.0-37.0); MEAN CORPUSCULAR VOLUME 97 fL (80-100); MONOCYTES # (AUTO) 0.5 K/uL (0.1-1.0); MONOCYTES % (AUTO) 6.6 % (2.0-9.0); NEUTROPHILS % (AUTO) 52.1 % (40.0-70.0); PLATELET COUNT (AUTO) 362 K/uL (150-450); RED BLOOD CELL COUNT(AUTO) 4.17 MIL/uL (4.50-5.90); RED CELL DISTRIBUTION WIDTH 13.6 % (11.5-14.5)
[2017-10-15 08:10] VITALS: BP 112/64
[2017-10-15 08:24] LABS: HEMOGLOBIN A1C 5.4 % (4.5-6.2)
[2017-10-15 08:39] LABS: ALANINE AMINOTRANSFERASE 38 U/L (12-78); ALBUMIN 2.9 g/dL (3.4-5.0); ALKALINE PHOSPHATASE 64 U/L (46-116); ANION GAP 6 mmol/L (8-16); ASPARTATE AMINOTRANSFERASE 47 U/L (15-37); BILIRUBIN,TOTAL 0.2 mg/dL (0.1-1.0); CALCIUM, TOTAL 8.6 mg/dL (8.8-10.5); CARBON DIOXIDE 28 mmol/L (22-29); CHLORIDE 103 mmol/L (98-107); CHOL/HDL RATIO 2.9 (4.2-7.3); CHOLESTEROL 202 mg/dL (131-200); CREATININE 0.72 mg/dL (0.60-1.30); GLOMERULAR FILTR. RATE CALC > 60 mL/min (>60); GLUCOSE,RANDOM 83 mg/dL (70-110); HDL CHOLESTEROL 70 mg/dL (40-60); LDL CHOL (CALC.) 126 mg/dL (0-130); POTASSIUM 4.5 mmol/L (3.5-5.1); SODIUM SERUM 137 mmol/L (136-145); THYROID STIMULATING HORMONE 1.37 uIU/mL (0.36-3.74); TOTAL PROTEIN, SERUM 6.1 g/dL (6.4-8.2); TRIGLYCERIDES 32 mg/dL (15-150); UREA NITROGEN, BLOOD 16 mg/dL (7-18)
[2017-10-15] MEDS: DIVALPROEX SODIUM 500 MG ER TABLET PO SCH ×2 (09:00→10:44)
[2017-10-15] MEDS: BACITRACIN 28.4 GM OINTMENT TP SCH ×3 (09:00→16:39)
[2017-10-15 16:00] VITALS: BP 109/69
[2017-10-15] MEDS: LORazepam 2 MG TABLET PO PRN (16:39)
[2017-10-15] MEDS: ChlorproMAZINE HCL 100 MG TABLET PO PRN (16:39)
[2017-10-15] MEDS: DiphenhydrAMINE HCL 25 MG CAPSULE PO SCH (20:42)
[2017-10-15] MEDS: HALOPERIDOL 10 MG TABLET PO SCH (20:42)
[2017-10-16 06:35] VITALS: BP 108/65
[2017-10-16 08:13] VITALS: BP 114/68
[2017-10-16] MEDS: DIVALPROEX SODIUM 500 MG ER TABLET PO SCH (09:53)
[2017-10-16] MEDS: BACITRACIN 28.4 GM OINTMENT TP SCH ×2 (09:54→16:26)
[2017-10-16] MEDS: LORazepam 2 MG TABLET PO PRN ×2 (09:54→16:26)
[2017-10-16 16:00] VITALS: BP 116/70
[2017-10-16] MEDS: ChlorproMAZINE HCL 100 MG TABLET PO PRN (16:26)
[2017-10-16] MEDS: DiphenhydrAMINE HCL 25 MG CAPSULE PO SCH (20:30)
[2017-10-16] MEDS: HALOPERIDOL 10 MG TABLET PO SCH (20:30)
[2017-10-17 06:43] VITALS: BP 115/64
[2017-10-17] MEDS: BACITRACIN 28.4 GM OINTMENT TP SCH ×2 (09:07→16:36)
[2017-10-17] MEDS: DIVALPROEX SODIUM 500 MG ER TABLET PO SCH (09:07)
[2017-10-17 09:26] VITALS: BP 124/64
[2017-10-17] MEDS ORDERED: HydrOXYzine PAMOATE 50 MG CAPSULE PO PRN (11:30)
[2017-10-17] MEDS ORDERED: GuaiFENesin/D-METHORPHAN [SUGAR-FREE] 200-20MG/10 ML SYRUP UDCUP PO PRN (11:30)
[2017-10-17] MEDS ORDERED: LOPERAMIDE HCL 2 MG CAPSULE PO PRN (11:30)
[2017-10-17] MEDS ORDERED: MAG HYDROX/AL HYDROX/SIMETH ES 30 ML SUSPENSION UDCUP PO PRN (11:30)
[2017-10-17] MEDS ORDERED: ACETAMINOPHEN 325 MG TABLET PO PRN (11:30)
[2017-10-17] MEDS ORDERED: MAGNESIUM HYDROXIDE SUSPENSION 30 ML UDCUP PO PRN (11:30)
[2017-10-17] MEDS ORDERED: PROMETHAZINE HCL 25 MG TABLET PO PRN (11:30)
[2017-10-17] MEDS ORDERED: HALOPERIDOL 5 MG TABLET PO PRN (11:30)
[2017-10-17 16:00] VITALS: BP 133/79
[2017-10-17] MEDS: THIAMINE HCL 100 MG TABLET PO SCH (16:36)
[2017-10-17] MEDS: LORazepam 2 MG TABLET PO PRN (16:36)
[2017-10-17] MEDS: HALOPERIDOL 10 MG TABLET PO SCH (20:18)
[2017-10-17] MEDS: DiphenhydrAMINE HCL 25 MG CAPSULE PO SCH (20:18)
[2017-10-18 06:34] VITALS: BP 101/70
[2017-10-18 08:00] VITALS: BP 96/67
[2017-10-18] MEDS: MULTIVITAMINS WITH MINERALS, THERAPEUTIC TABLET PO SCH (09:33)
[2017-10-18] MEDS: BACITRACIN 28.4 GM OINTMENT TP SCH ×2 (09:33→16:22)
[2017-10-18] MEDS: DIVALPROEX SODIUM 500 MG ER TABLET PO SCH (09:33)
[2017-10-18] MEDS: THIAMINE HCL 100 MG TABLET PO SCH ×2 (09:33→16:22)
[2017-10-18] MEDS: FOLIC ACID 1 MG TABLET PO SCH (09:33)
[2017-10-18] MEDS ORDERED: HALOPERIDOL DECANOATE 50 MG/ML VIAL IM ONE (14:30)
[2017-10-18 16:00] VITALS: BP 125/68
[2017-10-18] MEDS: ZOLPIDEM TARTRATE 10 MG TABLET PO PRN (20:25)
[2017-10-18] MEDS: DiphenhydrAMINE HCL 25 MG CAPSULE PO SCH (20:26)
[2017-10-18] MEDS: HALOPERIDOL 10 MG TABLET PO SCH (20:26)
[2017-10-19 00:21] VITALS: BP 106/68
[2017-10-19 08:24] VITALS: BP 112/62
[2017-10-19] MEDS: DIVALPROEX SODIUM 500 MG ER TABLET PO SCH (09:11)
[2017-10-19] MEDS: THIAMINE HCL 100 MG TABLET PO SCH ×2 (09:12→17:12)
[2017-10-19] MEDS: FOLIC ACID 1 MG TABLET PO SCH (09:12)
[2017-10-19] MEDS: HALOPERIDOL 10 MG TABLET PO SCH ×2 (09:12→17:11)
[2017-10-19] MEDS: MULTIVITAMINS WITH MINERALS, THERAPEUTIC TABLET PO SCH (09:12)
[2017-10-19] MEDS: BACITRACIN 28.4 GM OINTMENT TP SCH ×2 (09:13→17:12)
[2017-10-19 16:00] VITALS: BP 120/67
[2017-10-19] MEDS: LORazepam 2 MG TABLET PO PRN (17:12)
[2017-10-19] MEDS: DiphenhydrAMINE HCL 25 MG CAPSULE PO SCH (20:43)
[2017-10-20 08:18] VITALS: BP 112/72
[2017-10-20] MEDS: THIAMINE HCL 100 MG TABLET PO SCH ×2 (08:21→17:42)
[2017-10-20] MEDS: FOLIC ACID 1 MG TABLET PO SCH (08:21)
[2017-10-20] MEDS: HALOPERIDOL 10 MG TABLET PO SCH ×2 (08:21→17:42)
[2017-10-20] MEDS: DIVALPROEX SODIUM 500 MG ER TABLET PO SCH (08:22)
[2017-10-20] MEDS: MULTIVITAMINS WITH MINERALS, THERAPEUTIC TABLET PO SCH (08:22)
[2017-10-20] MEDS: BACITRACIN 28.4 GM OINTMENT TP SCH ×2 (08:22→17:42)
[2017-10-20 16:00] VITALS: BP 114/68
[2017-10-20] MEDS: LORazepam 2 MG TABLET PO PRN (17:42)
[2017-10-20] MEDS: ZOLPIDEM TARTRATE 10 MG TABLET PO PRN (21:17)
[2017-10-20] MEDS: DiphenhydrAMINE HCL 25 MG CAPSULE PO SCH (21:17)
[2017-10-21 04:09] VITALS: BP 113/82
[2017-10-21 08:30] VITALS: BP 114/68
[2017-10-21 08:41] LABS: AMPHET/METH SCREEN,URINE NEGATIVE (NEGATIVE); BARBITURATE SCREEN, URINE NEGATIVE (NEGATIVE); BENZODIAZEPINES SCREEN,URINE NEGATIVE (NEGATIVE); CANNABINOID SCREEN,URINE NEGATIVE (NEGATIVE); COCAINE SCREEN,URINE NEGATIVE (NEGATIVE); METHADONE SCREEN, URINE NEGATIVE (NEGATIVE); OPIATE SCREEN,URINE NEGATIVE (NEGATIVE)
[2017-10-21 08:42] LABS: PHENCYCLIDINE SCREEN,URINE NEGATIVE (NEGATIVE)
[2017-10-21 09:01] LABS: APPEARANCE,URINE CLEAR (CLEAR); BILIRUBIN,URINE NEGATIVE (NEGATIVE); GLUCOSE, URINE (UA) NEGATIVE (NEGATIVE); KETONES,URINE NEGATIVE (NEGATIVE); LEUKOCYTE ESTERASE ,URINE NEGATIVE (NEGATIVE); NITRATE,URINE NEGATIVE (NEGATIVE); OCCULT BLOOD,URINE NEGATIVE (NEGATIVE); PROTEIN,URINE NEGATIVE (NEGATIVE); UROBILINOGEN,URINE 0.2 mg/dL (<=1.0)
[2017-10-21] MEDS: DIVALPROEX SODIUM 500 MG ER TABLET PO SCH ×2 (09:16→16:02)
[2017-10-21] MEDS: BACITRACIN 28.4 GM OINTMENT TP SCH ×2 (09:17→16:03)
[2017-10-21] MEDS: HALOPERIDOL 10 MG TABLET PO SCH ×2 (09:17→16:02)
[2017-10-21] MEDS: THIAMINE HCL 100 MG TABLET PO SCH ×2 (09:17→16:02)
[2017-10-21] MEDS: MULTIVITAMINS WITH MINERALS, THERAPEUTIC TABLET PO SCH (09:17)
[2017-10-21] MEDS: FOLIC ACID 1 MG TABLET PO SCH (09:17)
[2017-10-21 16:26] VITALS: BP 101/65
[2017-10-21] MEDS ORDERED: DiphenhydrAMINE HCL 50 MG/ML VIAL IM ONE (17:00)
[2017-10-21] MEDS ORDERED: LORazepam 2 MG/ML VIAL IM ONE (17:00)
[2017-10-21] MEDS ORDERED: HALOPERIDOL LACTATE 5 MG/ML VIAL IM ONE (17:00)
[2017-10-21] MEDS ORDERED: LORazepam 2 MG/ML VIAL ONE (17:01)
[2017-10-21] MEDS ORDERED: HALOPERIDOL LACTATE 5 MG/ML VIAL ONE (17:01)
[2017-10-21] MEDS ORDERED: DiphenhydrAMINE HCL 50 MG/ML VIAL ONE (17:01)
[2017-10-21 17:37] VITALS: BP 109/68
[2017-10-21] MEDS: DiphenhydrAMINE HCL 25 MG CAPSULE PO SCH (20:16)
[2017-10-22 01:00] VITALS: BP 103/67
[2017-10-22] MEDS: HALOPERIDOL 10 MG TABLET PO SCH ×2 (09:42→17:40)
[2017-10-22] MEDS: MULTIVITAMINS WITH MINERALS, THERAPEUTIC TABLET PO SCH (09:42)
[2017-10-22] MEDS: DIVALPROEX SODIUM 500 MG ER TABLET PO SCH ×2 (09:42→17:40)
[2017-10-22] MEDS: THIAMINE HCL 100 MG TABLET PO SCH ×2 (09:42→17:40)
[2017-10-22] MEDS: FOLIC ACID 1 MG TABLET PO SCH (09:42)
[2017-10-22] MEDS: BACITRACIN 28.4 GM OINTMENT TP SCH ×2 (09:42→17:40)
[2017-10-22 10:06] VITALS: BP 102/64
[2017-10-22 16:15] VITALS: BP 107/61
[2017-10-22] MEDS: LORazepam 2 MG TABLET PO PRN (17:40)
[2017-10-22] MEDS: DiphenhydrAMINE HCL 25 MG CAPSULE PO SCH (20:52)
[2017-10-22] MEDS: ZOLPIDEM TARTRATE 10 MG TABLET PO PRN (20:52)
[2017-10-23 06:07] VITALS: BP 112/65
[2017-10-23 08:35] VITALS: BP 110/70
[2017-10-23] MEDS: LORazepam 2 MG TABLET PO PRN ×2 (09:33→17:11)
[2017-10-23] MEDS: MULTIVITAMINS WITH MINERALS, THERAPEUTIC TABLET PO SCH (09:33)
[2017-10-23] MEDS: THIAMINE HCL 100 MG TABLET PO SCH ×2 (09:33→17:11)
[2017-10-23] MEDS: DIVALPROEX SODIUM 500 MG ER TABLET PO SCH ×2 (09:33→17:10)
[2017-10-23] MEDS: FOLIC ACID 1 MG TABLET PO SCH (09:33)
[2017-10-23] MEDS: HALOPERIDOL 10 MG TABLET PO SCH ×2 (09:34→17:11)
[2017-10-23] MEDS: BACITRACIN 28.4 GM OINTMENT TP SCH ×2 (09:35→17:10)
[2017-10-23 16:00] VITALS: BP 112/65
[2017-10-23] MEDS: ZOLPIDEM TARTRATE 10 MG TABLET PO PRN (20:44)
[2017-10-23] MEDS: DiphenhydrAMINE HCL 25 MG CAPSULE PO SCH (20:44)
[2017-10-24 06:38] VITALS: BP 138/60
[2017-10-24 08:30] VITALS: BP 116/76
[2017-10-24] MEDS: THIAMINE HCL 100 MG TABLET PO SCH ×2 (09:16→17:35)
[2017-10-24] MEDS: MULTIVITAMINS WITH MINERALS, THERAPEUTIC TABLET PO SCH (09:16)
[2017-10-24] MEDS: FOLIC ACID 1 MG TABLET PO SCH (09:16)
[2017-10-24] MEDS: HALOPERIDOL 10 MG TABLET PO SCH ×2 (09:16→17:35)
[2017-10-24] MEDS: DIVALPROEX SODIUM 500 MG ER TABLET PO SCH ×2 (09:16→17:35)
[2017-10-24] MEDS: BACITRACIN 28.4 GM OINTMENT TP SCH ×2 (09:17→17:35)
[2017-10-24 16:00] VITALS: BP 128/66
[2017-10-24] MEDS: LORazepam 2 MG TABLET PO PRN (17:35)
[2017-10-24] MEDS: ZOLPIDEM TARTRATE 10 MG TABLET PO PRN (20:44)
[2017-10-24] MEDS: DiphenhydrAMINE HCL 25 MG CAPSULE PO SCH (20:44)
[2017-10-25 02:32] VITALS: BP 115/63
[2017-10-25 08:44] VITALS: BP 128/72
[2017-10-25] MEDS: HALOPERIDOL 10 MG TABLET PO SCH (09:38)
[2017-10-25] MEDS: MULTIVITAMINS WITH MINERALS, THERAPEUTIC TABLET PO SCH (09:38)
[2017-10-25] MEDS: FOLIC ACID 1 MG TABLET PO SCH (09:38)
[2017-10-25] MEDS: THIAMINE HCL 100 MG TABLET PO SCH (09:38)
[2017-10-25] MEDS: DIVALPROEX SODIUM 500 MG ER TABLET PO SCH (09:38)
[2017-10-25] MEDS: LORazepam 2 MG TABLET PO PRN (09:39)
[2017-10-25] MEDS ORDERED: DIVA500T35 PO (10:58)
[2017-10-25] MEDS ORDERED: HALO10 PO (10:59)
[2017-10-25] MEDS ORDERED: DIPH50 PO (11:00)
[2017-11-15] MEDS ORDERED: HALOPERIDOL DECANOATE 50 MG/ML VIAL IM SCH (09:00)
== END 2017-10-25 12:06 | disposition home or self-care (01) | DRG 885 ==
LOC: B3A 17:41
PROVIDERS: ADMIT Psychiatry & Neurology Psychiatry; ATTEND Psychiatry & Neurology Psychiatry
DX: F25.0 Schizoaffective disorder, bipolar type (principal); E46 Unspecified protein-calorie malnutrition; Z59.0 Homelessness; R74.0 Nonspecific elevation of levels of transaminase and lactic acid dehydrogenase [LDH]; D50.9 Iron deficiency anemia, unspecified; F10.10 Alcohol abuse, uncomplicated; F17.200 Nicotine dependence, unspecified, uncomplicated; F19.90 Other psychoactive substance use, unspecified, uncomplicated; G47.00 Insomnia, unspecified; F41.9 Anxiety disorder, unspecified; Z91.14 Patient's other noncompliance with medication regimen; Z71.41 Alcohol abuse counseling and surveillance of alcoholic; Z71.6 Tobacco abuse counseling; Z79.899 Other long term (current) drug therapy
CPT/HCPCS: 80307; 83036; 84439; 84443; 87081; J1200; J1630; J1631; J2060

== ENCOUNTER 2019-02-08 16:26 | Emergency (ER) | payer MEDICARE, OTHER ==
[~2019-02-08 16:26] MED LIST changes: +DIPH50 PO; +DIVA-78 PO
[2019-02-08 20:29] LABS: BASOPHILS % (AUTO) 0.6 % (0.0-2.0); EOSINOPHILS % (AUTO) 0.6 % (1.0-6.0); HEMATOCRIT 40.8 % (41-53); HEMOGLOBIN 13.6 g/dL (13.5-17.5); LYMPHOCYTES # (AUTO) 2.9 K/uL (1.0-4.8); LYMPHOCYTES % (AUTO) 33.9 % (22.0-44.0); MEAN CORPUSCULAR HEMOGLOBIN 31.2 pg (26.0-34.0); MEAN CORPUSCULAR HGB CONC 33.3 G/dL (31.0-37.0); MEAN CORPUSCULAR VOLUME 94 fL (80-100); MONOCYTES # (AUTO) 0.8 K/uL (0.1-1.0); MONOCYTES % (AUTO) 9.6 % (2.0-9.0); NEUTROPHILS # (AUTO) 4.8 K/uL (1.8-7.7); NEUTROPHILS % (AUTO) 55.3 % (40.0-70.0); PLATELET COUNT (AUTO) 287 K/uL (150-450); RED BLOOD CELL COUNT(AUTO) 4.36 MIL/uL (4.50-5.90); RED CELL DISTRIBUTION WIDTH 14.5 % (11.5-14.5)
[2019-02-08 20:41] LABS: ANION GAP 8 mmol/L (8-16); CALCIUM, TOTAL 9.3 mg/dL (8.8-10.5); CARBON DIOXIDE 28 mmol/L (22-29); CHLORIDE 102 mmol/L (98-107); CREATININE 0.99 mg/dL (0.60-1.30); GLOMERULAR FILTR. RATE CALC > 60 mL/min (>60); GLUCOSE,RANDOM 90 mg/dL (70-110); POTASSIUM 3.8 mmol/L (3.5-5.1); SODIUM SERUM 138 mmol/L (136-145); UREA NITROGEN, BLOOD 16 mg/dL (7-18)
[2019-02-08 20:47] LABS: ALANINE AMINOTRANSFERASE 16 U/L (12-78); ALBUMIN 3.9 g/dL (3.4-5.0); ALKALINE PHOSPHATASE 64 U/L (46-116); ASPARTATE AMINOTRANSFERASE 20 U/L (15-37); BILIRUBIN,TOTAL 0.5 mg/dL (0.1-1.0); TOTAL PROTEIN, SERUM 7.3 g/dL (6.4-8.2)
[2019-02-08] MEDS ORDERED: LORazepam 2 MG TABLET PO ONE (22:30)
[2019-02-08] MEDS ORDERED: DiphenhydrAMINE HCL 25 MG CAPSULE PO ONE (22:30)
[2019-02-08] MEDS ORDERED: HALOPERIDOL 5 MG TABLET PO ONE (22:30)
[2019-02-09 05:06] VITALS: BP 134/77
== END 2019-02-09 05:21 | disposition home or self-care (01) ==
LOC: EMS 16:26
DX: F41.9 Anxiety disorder, unspecified (principal); F20.9 Schizophrenia, unspecified
CPT/HCPCS: 36415; 80053; 85025; 99285; G0480